=== PATIENT | male | born 1955 | race Caucasian/White ===

== ENCOUNTER 2018-08-12 19:22 | Emergency (ER) | payer SELFPAY ==
[2018-08-12] MEDS ORDERED: NS 1,000 ML IV ONE (19:28)
--- NOTE | 2018-08-12 19:35 | EDPHY ---
H & P Stated Complaint: per ems pt at dinner, pt was eating, felt dizzy, then seized for 45secs Source: Patient Exam Limitations: No limitations - Medical/Surgical History Hx Asthma: No Hx Chronic Respiratory Disease: No Hx Diabetes: No Hx Cardiac Disease: Yes Hx Renal Disease: No Hx Cirrhosis: No Hx Alcoholism: No Hx HIV/AIDS: No Hx Splenectomy or Spleen Trauma: No Other PMH: hypertesion - Social History Smoking Status: Never smoked Time Seen by Provider: 08/12/18 19:33 HPI/ROS: CHIEF COMPLAINT: First-time seizure HISTORY OF PRESENT ILLNESS: The patient presents the emergency department after first-time seizure that occurred dinner. The patient was dining with his family. He was observed to have a loss of consciousness with jerking movements noted in his eyes. There is no true tonic-clonic seizure. The patient did have symptoms which appear to be consistent with a postictal period for approximately 4-5 minutes after the event. There is no incontinence or tongue bite. The patient has no prior history of seizure. Patient does have a history of hypertension. He takes lisinopril for this condition sporadically. The patient did have a mild headache earlier today which was not atypical. REVIEW OF SYSTEMS: A comprehensive 10 point review of systems is otherwise negative aside from elements mentioned in the history of present illness. (Cameron Harrison) - Physical Exam Exam: General Appearance: Alert, postictal, pale Head: Atraumatic Eyes: Pupils equal, round, reactive ENT, Mouth: No hemotympanum, no oral trauma Neck: Nontender, trachea midline Respiratory: No chest wall tender, no subcutaneous air, lungs clear bilaterally Cardiovascular: Regular rate and rhythm Abdomen: Abdomen is soft and nontender, pelvis stable Skin: No lacerations, No abrasion Back: No midline T/L/S pain Extremities: Nontender, full range of motion Neurological: A&Ox3, normal motor function, normal sensory exam (Cameron Harrison) Constitutional: Initial Vital Signs Temperature (C) 37 C 08/12/18 19:26 Heart Rate 55 L 08/12/18 19:26 Respiratory Rate 14 08/12/18 19:26 Blood Pressure 97/56 L 08/12/18 19:26 O2 Sat (%) 91 L 08/12/18 19:26 O2 Delivery Mode Room Air Allergies/Adverse Reactions: No Known Allergies Allergy (Unverified 08/12/18 19:31) Home Medications: Medication Instructions Recorded Lisinopril 08/12/18 Medical Decision Making - Diagnostics Imaging Results: Imaging Impressions Head CT 08/12/18 19:29 Impression: Equivocal hypodense asymmetry seen in the anterior left temporal lobe. Consider MR imaging (with and without contrast) for further, more definitive assessment. Findings and recommendations were discussed with Darby Mas MD at 19:54, on 08/12/2018. Brain MRI 08/12/18 20:03 Impression: 1. There is no evidence of a temporal lobe mass, cerebral edema, or unusual enhancement. 2. Nonspecific subcortical and deep white matter hyperintense foci, with differential considerations including chronic microvascular ischemic gliosis, demyelination, or old posttraumatic or postinflammatory changes. Follow-up can be obtained, as clinically directed. Findings were discussed with ALANNAH MAS MD at 21:13, on 08/12/2018. ED Course/Re-evaluation: Patient presents to the ED with a likely first-time seizure. The patient arrives and is neurologically intact. Given his age a noncontrast head CT scan has been ordered. The patient had an IV established. He received a L of normal saline. Screening laboratory studies have been sent. Patient will be turned over to Dr. Mas at 8:00 p.m.. If workup negative in the ED. The patient will be discharged with customary seizure aftercare instructions and neurology follow-up. (Cameron Harrison) I assumed care of this patient at 8:[address] scan results discussed with the patient and his family. Will proceed with MRI with and without contrast to further evaluate the possible left temporal lobe abnormality. 9:15 p.m.-MRI of the brain with and without contrast read by Dr. Vern López reveals multiple hyperintense foci of attenuation, possibly posttraumatic or demyelinating. Results discussed with the patient. Will follow up with Neurology. Seizure precautions given. Understands that he may not drive. (Alannah Mas) Differential Diagnosis: Differential diagnosis includes though it is not limited to status epilepticus, hypoglycemia, intracranial hemorrhage, CVA, benzodiazepine withdrawal, alcohol withdrawal, epilepsy. (Alannah Mas) - Data Points Laboratory Results: Laboratory Results 08/12/18 19:25 08/12/18 19:25 08/12/18 08/12/18 19:25 19:25 WBC 15.27 10^3/uL H 10^3/uL (3.80-9.50) RBC 4.95 10^6/uL 10^6/uL (4.40-6.38) Hgb 16.0 g/dL g/dL (13.7-17.5) Hct 47.1 % % (40.0-51.0) MCV 95.2 fL fL (81.5-99.8) MCH 32.3 pg pg (27.9-34.1) MCHC 34.0 g/dL g/dL (32.4-36.7) RDW 12.9 % % (11.5-15.2) Plt Count 307 10^3/uL 10^3/uL (150-400) MPV 9.5 fL fL (8.7-11.7) Neut % (Auto) 57.3 % % (39.3-74.2) Lymph % (Auto) 33.0 % % (15.0-45.0) [place] % (Auto) 7.4 % % (4.5-13.0) Eos % (Auto) 1.3 % % (0.6-7.6) Baso % (Auto) 0.5 % % (0.3-1.7) Nucleat RBC Rel Count 0.0 % % (0.0-0.2) Absolute Neuts (auto) 8.75 10^3/uL H 10^3/uL (1.70-6.50) Absolute Lymphs (auto) 5.04 10^3/uL H 10^3/uL (1.00-3.00) Absolute Monos (auto) 1.13 10^3/uL H 10^3/uL (0.30-0.80) Absolute Eos (auto) 0.20 10^3/uL 10^3/uL (0.03-0.40) Absolute Basos (auto) 0.08 10^3/uL 10^3/uL (0.02-0.10) Absolute Nucleated RBC 0.00 10^3/uL 10^3/uL (0-0.01) Immature Gran % 0.5 % % (0.0-1.1) Immature Gran # 0.08 10^3/uL 10^3/uL (0.00-0.10) RBC/WBC/PLT Morphology TNP Platelet Estimate TNP Sodium 134 mEq/L L mEq/L (135-145) Potassium 3.7 mEq/L mEq/L (3.5-5.2) Chloride 102 mEq/L mEq/L (97-110) Carbon Dioxide 24 mEq/l mEq/l (22-31) Anion Gap 8 mEq/L mEq/L (6-14) BUN 17 mg/dL mg/dL (7-23) Creatinine 1.3 mg/dL mg/dL (0.7-1.3) Estimated GFR 56 Glucose 128 mg/dL H mg/dL (70-100) Calcium 8.7 mg/dL mg/dL (8.5-10.4) Medications Given: Discontinued Medications Sodium Chloride (Ns) 1,000 mls @ 0 mls/hr IV EDNOW ONE; Wide Open PRN Reason: Protocol Stop: 08/12/18 19:29 Last Admin: 08/12/18 19:41 Dose: 1,000 mls Departure - Departure Disposition: Home, Routine, Self-Care Clinical Impression: Seizure Condition: Good Instructions: New-Onset Seizure in Adults (ED) Additional Instructions: 1. No driving, dangerous activities such as riding a ski lift, swimming in a pool or other behavior that could put you or someone else at risk in the event of a recurrent seizure. You will need to be cleared by a neurologist to resume these activities. 2. Please return to the ED for recurrent seizure, headache, numbness, weakness, altered mental status or other concerns. 3. Please follow up with neurologist you have been referred to this week to schedule a follow-up appointment. Referrals: Abdi Ford MD [Medical Doctor] - As per Instructions
[2018-08-12 19:41] LABS: PLATELET COUNT 307 10^3/uL (150-400)
[2018-08-12] MEDS ORDERED: GADOBUTROL 10 ML VIAL IVP ONE (20:25)
[2018-08-12 21:44] VITALS: BP 99/58
--- NOTE | 2018-08-14 14:35 | CPEKG ---
Test Reason : OPEN Blood Pressure : / mmHG Vent. Rate : 056 BPM Atrial Rate : 056 BPM P-R Int : 187 ms QRS Dur : 100 ms QT Int : 444 ms P-R-T Axes : 092 077 049 degrees QTc Int : 429 ms Sinus rhythm Confirmed by Cameron Harrison ([id number]) on 08/14/2018 2:34:51 PM Referred By: Cameron Harrison Confirmed By:Cameron Harrison
== END 2018-08-12 21:44 | disposition home or self-care (01) ==
LOC: EDUNIT#
DX: R56.9 Unspecified convulsions (principal); I10 Essential (primary) hypertension
CPT/HCPCS: A9585